=== PATIENT | male | born 1965 | race Caucasian/White ===

== ENCOUNTER → 2024-08-24 13:18 | Outpatient (CLI) | payer OTHER, SELFPAY | PROVIDERS: Referring Provider Internal Medicine; Visit Provider Internal Medicine | DX: R06.02 Shortness of breath (principal); R94.2 Abnormal results of pulmonary function studies | CPT/HCPCS: 94060; 94726; 94729 ==

== ENCOUNTER → 2025-04-13 18:35 | Outpatient (CLI) | payer OTHER, SELFPAY ==
--- NOTE | 2025-04-13 18:35 | DI.MRI.S_ITS ---
PROCEDURE: MR HIP RT WO CON INDICATIONS: Worsening osteoarthrisit pain TECHNIQUE: Noncontrast coronal T1 spin echo and STIR through the bony pelvis. Coronal and axial T2 fast spin echo with fat saturation, sagittal T1 spin echo, and oblique axial T2 fast spin echo with fat saturation through the hip. COMPARISON: [facility], RG, PELVIS W/LAT HIP RT, 11/02/2024, 9:42. FINDINGS: Image quality: Excellent. Bones and joints: Marrow signal of the visualized lower lumbar spine is unremarkable. The sacrum is intact. Bilateral sacroiliac joints are unremarkable. No acute fracture or dislocation of either hip. No avascular necrosis of either femoral head. Moderate degenerative changes of bilateral hips, left greater right. Tendons and ligaments: The right iliopsoas, adductor, tendons unremarkable. Mild tendinosis of the right hamstring tendon, without tear. The right gluteal minimus is unremarkable. Small area of T2 and T1 hypointensity at the insertion of the right gluteal medius (04:17), representing hydroxyapatite deposition disease. No tear of the right gluteal medius. No right greater trochanteric bursitis. Labrum and cartilage: Near circumferential labral tear. No paralabral cyst. Soft tissues: Sigmoid colon diverticulosis. IMPRESSION: 1. Moderate degenerative change of the right hip. 2. 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 Dictated by: Elisa Waters M.D. on 04/14/2025 at 15:14 Approved by: Elisa Waters M.D. on 04/14/2025 at 15:27
--- NOTE | 2025-04-13 18:35 | DI.MRI.S_ITS ---
PROCEDURE: MR HIP LT WO CON INDICATIONS: Worsening osteoarthrisit pain TECHNIQUE: Noncontrast coronal T1 spin echo and STIR through the bony pelvis. Coronal and axial T2 fast spin echo with fat saturation, sagittal T1 spin echo, and oblique axial T2 fast spin echo with fat saturation through the hip. COMPARISON: [facility], RG, PELVIS W/LAT HIP RT, 11/02/2024, 9:42. FINDINGS: Image quality: Excellent. Bones and joints: Marrow signal of the visualized lower lumbar spine, the sacrum, and bilateral sacroiliac joints unremarkable. Moderate degenerative changes of bilateral hips, left greater right. Mild subchondral marrow edema in the left superior acetabulum and the posterior acetabulum, degenerative. Mild T2 hyperintense lesion at the anterior aspect of the left femoral head and neck junction, likely representing subchondral cystic changes. No acute fracture or dislocation of either femoral head. Tendons and ligaments: The left iliopsoas, adductor tendons unremarkable. Mild tendinosis of the left hamstring tendon, without tear. The left gluteal minimus, and the left gluteus medius tendon are unremarkable. No left greater trochanteric bursitis. Labrum and cartilage: Circumferential labral tear. No paralabral cyst. Soft tissues: Sigmoid colon diverticulosis. IMPRESSION: 1. Moderate degenerative changes of the left hip with associated marrow edema and subchondral cystic changes. 2. Labral tear of the left hip. No paralabral cyst. Dictated by: Elisa Waters M.D. on 04/14/2025 at 15:33 Approved by: Elisa Waters M.D. on 04/14/2025 at 15:41
== END ==
LOC: MRI 18:35
PROVIDERS: PCP Student in an Organized Health Care Education/Training Program; Referring Provider Student in an Organized Health Care Education/Training Program; Visit Provider Student in an Organized Health Care Education/Training Program
DX: M16.9 Osteoarthritis of hip, unspecified (principal); M11.051 Hydroxyapatite deposition disease, right hip; K57.30 Diverticulosis of large intestine without perforation or abscess without bleeding; S73.102A Unspecified sprain of left hip, initial encounter
CPT/HCPCS: 73721

== ENCOUNTER → 2025-06-01 09:52 | Outpatient (CLI) | payer OTHER, SELFPAY ==
[2025-06-01 11:06] LABS: Hemoglobin A1C% w Est Avg Glu 5.4 % (4.0-6.0)
[2025-06-01 11:18] LABS: Cholesterol 214 mg/dL (140-199); HDL Cholesterol 103 mg/dL (40-60); Triglycerides 114 mg/dL (35-150)
[2025-06-01 11:46] LABS: Prostate Specific Antigen 0.905 ng/mL (0.10-4.00)
== END ==
PROVIDERS: PCP Student in an Organized Health Care Education/Training Program; Referring Provider Student in an Organized Health Care Education/Training Program; Visit Provider Student in an Organized Health Care Education/Training Program
DX: E78.2 Mixed hyperlipidemia (principal); Z13.1 Encounter for screening for diabetes mellitus; Z12.5 Encounter for screening for malignant neoplasm of prostate
CPT/HCPCS: 36415; 80061; 83036; 84153